=== PATIENT | male | born 1975 | race Caucasian/White ===

== ENCOUNTER 2021-04-07 12:50 | Emergency (ER) | payer OTHER, SELFPAY ==
[2021-04-07 13:07] VITALS: BP 140/84; PULSE 92; RESP 18; TEMP 36.9; O2SAT 97
--- NOTE | 2021-04-07 13:26 | CTR_ITS ---
PROCEDURE INFORMATION: Exam: CT Abdomen And Pelvis With Contrast Exam date and time: 04/07/2021 1:26 PM Age: 46 years old Clinical indication: Abdominal pain; Localized; Left lower quadrant (llq); Additional info: Llq pain TECHNIQUE: Imaging protocol: Computed tomography of the abdomen and pelvis with contrast. Radiation optimization: All CT scans at this facility use at least one of these dose optimization techniques: automated exposure control; mA and/or kV adjustment per patient size (includes targeted exams where dose is matched to clinical indication); or iterative reconstruction. Contrast material: OMNIPAQUE 300; Contrast volume: 95 ml; Contrast route: INTRAVENOUS (IV); COMPARISON: No relevant prior studies available. RADIATION DOSE METRICS: Total DLP (mGy-cm): 1251.95 FINDINGS: Liver: Normal. No mass. Gallbladder and bile ducts: Normal. No calcified stones. No ductal dilation. Pancreas: Normal. No ductal dilation. Spleen: Normal. No splenomegaly. Adrenal glands: Normal. No mass. Kidneys and ureters: There are bilateral renal cysts. No renal calcification or hydronephrosis. Stomach and bowel: There is wall thickening of the ascending, transverse and descending colon. There is also wall thickening of the the proximal left small bowel. No bowel obstruction. Appendix: The appendix is visualized and appears normal. Intraperitoneal space: Unremarkable. No free air. No significant fluid collection. Vasculature: Unremarkable. No abdominal aortic aneurysm. Lymph nodes: Unremarkable. No enlarged lymph nodes. Urinary bladder: Unremarkable as visualized. Reproductive: Unremarkable as visualized. Bones/joints: Unremarkable. No acute fracture. Soft tissues: Unremarkable. CT/CT abdomen pelvis w con* [id number] IMPRESSION: Findings are consistent with enterocolitis.Clinical correlation is advised. COMMENTS: Consistent with the [employer]'s Incidental Findings Committee white paper (J Am Zeus Radiol 2018): Any incidental renal lesion less than 1 cm or classified as too small to characterize, or any incidental cystic renal lesion characterized as simple-appearing, is likely benign. No follow-up imaging is recommended for these lesions per consensus recommendations based on imaging criteria. Radiation Dose CTDIVOL = (mGy): DLP = 1251.95 (mGy-cm)
--- NOTE | 2021-04-07 13:27 | W.ED.ABDPA2 ---
HPI - Abdominal Pain General: Chief Complaint: Abdominal Pain Stated Complaint: SEVERE IN LOWER ABD Time Seen by Provider: 04/07/21 13:02 History of Present Illness: HPI narrative: Patient presents with 2-week history of left sided abdominal pain. Patient felt a pull in his abdomen 2 weeks ago while he was working pulling a crowbar a missed for couple days went back to work worked again and then approximately week and half later this he was pulling on a wire and PVC tubing and he felt like he ate some a bearhug to him around his abdomen and then he was walking to the office and he just went down with severe left-sided pain. Was transferred by ambulance to [facility] x-ray chest and labs were negative was discharged and patient said he is continued to have pain in his left quadrant and just did not feel right. Has history of reflux. Also has a history of he says spicy foods greasy food just running right through him for the last 2 years. MD elicited complaint: abdominal pain Onset (ago): day(s) Pain Consistency: constant Location: LLQ Severity: moderate Quality: fullness and sharp Migration to: no migration Exacerbating factors: movement Associated Symptoms: Reports no associated symptoms; Denies chills, fever(s), nausea and vomiting Review of Systems Const: Denies: fever(s), chills or body aches Eyes: Denies: change in vision or blurry vision ENMT: Denies: throat pain or nasal congestion Card: Denies: chest pain or dyspnea on exertion Resp: Denies: dyspnea, productive cough or non-productive cough GI: Reports: abdominal pain; Denies: nausea or vomiting : Denies: difficulty urinating Musc: Denies: extremity pain Skin/Breast: Denies: rash Neuro: Denies: headache(s) Psych: Denies: anxiety or depression Kt/Lymph: Denies: easy bruising PFSH ED PFSH: Social History (Updated 02/16/20 @ 10:53 by Naima Sotomayor CMA) Smoking and tobacco status: current every day smoker cigarettes Packs smoked per day: 0.5 Alcohol intake: former Year of sobriety/quit date alcohol: 2018 Physical Exam Const: COMMON NORMALS: no acute distress, average body habitus and patient oriented x3 HENMT: COMMON NORMALS: normocephalic HEAD & SCALP: normal to inspection and normocephalic FACE & SINUS: normal facial exam Eye: COMMON NORMALS: conjunctivae normal GENERAL EYE: appearance normal, both eyes and all related structures CONJUNCTIVA: Yes conjunctivae normal Neck/C-Spine: COMMON NORMALS: no JVD Chest: COMMONS NORMALS: normal inspection of the chest Resp: COMMON NORMALS: normal respiratory effort and clear to auscultation bilaterally AUSCULTATION: clear to auscultation bilaterally Cardio: COMMON NORMALS: no JVD, regular rate and regular rhythm RATE: regular rate RHYTHM: regular rhythm GI: INSPECTION: Yes normal to inspection PALPATION: Yes Tenderness to palpation present (GI) Details: LLQ and LUQ Extremity: COMMON NORMALS: normal to inspection and full ROM Neuro: COMMON NORMALS: patient oriented x3 Course Vital Signs: Vital signs: Vital Signs Temperature 98.4 F 04/07/21 13:07 Pulse Rate 79 04/07/21 15:18 Respiratory Rate 16 04/07/21 15:18 Blood Pressure 117/96 04/07/21 15:18 Pulse Oximetry 100 04/07/21 15:18 MDM - Abdominal Pain MDM Narrative: Medical decision making narrative: Mild elevated white count. CT shows enterocolitis. Explained was going on patient placed on antibiotics and follow-up at the clinic to be reevaluated this coming week. Also recommend he see a GI specialist. Lab Data: Labs: Lab Results 04/07/21 04/07/21 04/07/21 Range/Units 13:40 13:40 14:27 WBC 11.2 H (4.0-10.0) 10^3/ uL RBC 5.48 H (4.1-5.3) 10^6/u L Hgb 16.7 H (11.7-16.6) g/dL Hct 49.7 (42.0-52.0) % MCV 90.7 (80-94) fl MCH 30.5 (28.0-34.0) pg MCHC 33.6 (30.0-36.0) g/dL RDW 13.0 (12.1-15.1) % Plt Count 210 (130-400) 10^3/c mm MPV 12.4 H (7.4-10.4) fL Neut % (Auto) 69.9 % Lymph % (Auto) 22.9 % [place] % (Auto) 5.5 % Eos % (Auto) 1.1 % Baso % (Auto) 0.3 % Neut # (Auto) 7.83 H (1.8-7.7) 10^3/u L Lymph # (Auto) 2.6 (0.8-4.8) 10^3/u L [place] # (Auto) 0.6 (0.2-0.9) 10^3/u L Eos # (Auto) 0.1 (0.0-0.8) 10^3/u L Baso # (Auto) 0.0 (0.0-0.1) 10^3/u L Nucleated RBC % (a uto) 0 % Nucleated RBCs # 0.0 /100WBC Sodium 141 (136-145) mmol/L Potassium 4.0 (3.5-5.1) mmol/L Chloride 106 (98-107) mmol/L Carbon Dioxide 24 (22-29) mmol/L Anion Gap 15.0 (5-19) BUN 7 (6-20) mg/dL Creatinine 0.7 (0.7-1.2) mg/dL GFR Calculation 122.0 (90-130) mL/min Glucose 78 (65-115) mg/dL Calculated Osmolal ity 289 (285-295) mOsm/k g Calcium 8.6 (8.5-10.5) mg/dL Total Bilirubin 0.5 (0.15-1.2) mg/dL AST 18 (0-40) U/L ALT 18 (0-41) U/L Alkaline Phosphata se 100 (40-130) IU/L Total Protein 6.8 (6.6-8.7) g/dL Albumin 4.1 (3.5-5.2) g/dL Globulin 2.7 (1.3-4.6) g/dL Lipase 20 (13-60) U/L Urine Color Yellow (Yellow) Urine Appearance Clear (CLEAR) Urine pH 6.5 (5-7) Ur Specific Gravit y 1.005 (1.005-1.030) Urine Protein Trace (Negative) Urine Glucose (UA) Norm (Normal) Urine Ketones Negative (Negative) Urine Blood Neg (Negative) Urine Nitrate Negative (Negative) Urine Bilirubin Neg (Negative) Urine Urobilinogen 1 H (Negative) mg/dL Ur Leukocyte Cheryl ase Negative (Negative) Urine RBC None (0-2) /hpf Urine WBC Rare (0-5) /hpf Ur Squamous Epith Cells None (0-5) /hpf Amorphous Sediment Not Reportable Urine Bacteria Trace (NONE) /hpf Discharge Plan Discharge Patient Disposition: Home Clinical Impression: Enterocolitis Condition: Stable Prescriptions: New Flagyl 500 mg tablet 500 mg PO BID 7 Days Qty: 14 RF: 0 Cipro 500 mg tablet 500 mg PO BID Qty: 14 RF: 0 No Action amoxicillin 500 mg tablet 1,000 mg PO BID 10 Days Qty: 40 RF: 0 clarithromycin 500 mg tablet 500 mg PO BID 10 Days Qty: 20 RF: 0 metronidazole 250 mg tablet 250 mg PO Q12H 10 Days Qty: 20 RF: 0 omeprazole 20 mg capsule,delayed release(DR/EC) 20 mg PO BID Qty: 40 RF: 0 Discharge Orders: Discharge ED (Routine); Ordered 04/07/21 Ordered By: Vladislav Hawley Referrals: Ac Fuchs MD [Primary Care Provider] - Discharge Diet: Advance as tolerated Discharge Activity: Increase activity as tolerated Activity Restrictions/Additional Instructions: Follow-up with medical provider as directed. Take medications as prescribed. Return to the ER or your medical provider if condition worsens. Please read and understand discharge instructions. If any questions ask please. Suggest follow-up with with a GI doctor. Also follow-up at [facility] in 1 week. Stand Alone Forms: Work/School Release Coding Level of Care Code ED Stay Cutter for Arnoldo Fwd Exam Comprehensive
[2021-04-07] MEDS: iohexol 300 mg/mL 100 mL Btl IV (13:44)
[2021-04-07 13:55] VITALS: BP 115/92; PULSE 75; RESP 16; O2SAT 96
[2021-04-07] MEDS: sodium chloride 0.9% 1,000 ML 999 ML IV (13:57)
[2021-04-07 14:00] VITALS: BP 114/86; PULSE 75; RESP 16; O2SAT 97
[2021-04-07 14:23] LABS: Basophils % 0.3 %; Eosinophils # 0.1 10^3/uL (0.0-0.8); Eosinophils % 1.1 %; Hematocrit 49.7 % (42.0-52.0); Hemoglobin 16.7 g/dL (11.7-16.6); Lymphocytes # 2.6 10^3/uL (0.8-4.8); Lymphocytes % 22.9 %; Mean Corpuscular HGB Conc 33.6 g/dL (30.0-36.0); Mean Corpuscular Hemoglobin 30.5 pg (28.0-34.0); Mean Corpuscular Volume 90.7 fl (80-94); Mean Platelet Volume 12.4 fL (7.4-10.4); Monocytes # 0.6 10^3/uL (0.2-0.9); Monocytes % 5.5 %; Neutrophils # 7.83 10^3/uL (1.8-7.7); Neutrophils % 69.9 %; Nucleated Red Blood Cells % 0 %; Platelet Count 210 10^3/cmm (130-400); Red Blood Count 5.48 10^6/uL (4.1-5.3); White Blood Count 11.2 10^3/uL (4.0-10.0)
[2021-04-07 14:53] LABS: Alanine Aminotransferase 18 U/L (0-41); Albumin Level 4.1 g/dL (3.5-5.2); Alkaline Phosphatase 100 IU/L (40-130); Aspartate Amino Transferase 18 U/L (0-40); Blood Urea Nitrogen 7 mg/dL (6-20); Calcium 8.6 mg/dL (8.5-10.5); Carbon Dioxide 24 mmol/L (22-29); Chloride 106 mmol/L (98-107); Globulin 2.7 g/dL (1.3-4.6); Glucose 78 mg/dL (65-115); Lipase 20 U/L (13-60); Osmolality Calculated 289 mOsm/kg (285-295); Sodium 141 mmol/L (136-145); Total Bilirubin 0.5 mg/dL (0.15-1.2); Total Protein 6.8 g/dL (6.6-8.7)
[2021-04-07] MEDS: ciprofloxacin 500 mg Tablet PO (14:53)
[2021-04-07] MEDS: metroNIDAZOLE 500 MG Tablet PO (14:53)
[2021-04-07 15:03] LABS: Add Urine Microscopic? YES; Bilirubin Urine Neg (Negative); Blood Urine Neg (Negative); Glucose Urine UA Norm (Normal); Ketones Urine Negative (Negative); Leukocyte Esterase Urine Negative (Negative); Nitrate Urine Negative (Negative); Protein Urine Trace (Negative); Specific Gravity, Urine 1.005 (1.005-1.030); Urine Appearance Clear (CLEAR); Urine Color Yellow (Yellow); Urobilinogen Urine 1 mg/dL (Negative); pH Urine 6.5 (5-7)
[2021-04-07 15:05] LABS: Add Urine Culture? No; Bacteria Urine TRACE /hpf; WBC Urine RARE /hpf (0-5)
[2021-04-07 15:18] VITALS: BP 117/96; PULSE 79; RESP 16; O2SAT 100
== END 2021-04-07 15:19 | disposition home or self-care (01) ==
PROVIDERS: Emergency Provider Nurse Practitioner Family; PCP Family Medicine
DX: K52.9 Noninfective gastroenteritis and colitis, unspecified (principal); F17.210 Nicotine dependence, cigarettes, uncomplicated
CPT/HCPCS: 74177; 80053; 81001; 83690; 85025; 96360; 99283; J7030; Q9967

== ENCOUNTER 2021-04-12 15:58 | Emergency (ER) | payer OTHER, SELFPAY ==
[2021-04-12 16:22] VITALS: BP 114/75; PULSE 96; RESP 20; TEMP 37.1; O2SAT 97
--- NOTE | 2021-04-12 17:03 | CTR_ITS ---
PROCEDURE INFORMATION: Exam: CT Abdomen And Pelvis With Contrast Exam date and time: 04/12/2021 5:03 PM Age: 46 years old Clinical indication: Abdominal pain; Localized; Left upper quadrant (luq) TECHNIQUE: Imaging protocol: Computed tomography of the abdomen and pelvis with contrast. Radiation optimization: All CT scans at this facility use at least one of these dose optimization techniques: automated exposure control; mA and/or kV adjustment per patient size (includes targeted exams where dose is matched to clinical indication); or iterative reconstruction. Contrast material: OMNI 350; Contrast volume: 95 ml; Contrast route: INTRAVENOUS (IV); COMPARISON: CT abdomen pelvis w con* [id number] 04/07/2021 1:39 PM RADIATION DOSE METRICS: Total DLP (mGy-cm): 1055.22 FINDINGS: Liver: Normal. No mass. Gallbladder and bile ducts: Normal. No calcified stones. No ductal dilation. Pancreas: Normal. No ductal dilation. Spleen: Normal. No splenomegaly. Adrenal glands: Normal. No mass. Kidneys and ureters: Scattered cysts throughout both kidneys measuring up to 1.3 cm in size in the upper pole the left kidney. Stomach and bowel: Unremarkable. No obstruction. No mucosal thickening. Appendix: No evidence of appendicitis. Intraperitoneal space: Unremarkable. No free air. No significant fluid collection. Vasculature: Unremarkable. No abdominal aortic aneurysm. Lymph nodes: Unremarkable. No enlarged lymph nodes. Urinary bladder: Unremarkable as visualized. Reproductive: Unremarkable as visualized. Bones/joints: No acute fracture. Soft tissues: Unremarkable. CT/CT abdomen pelvis w con* [id number] IMPRESSION: No acute abdominal/pelvic findings. COMMENTS: Consistent with the [employer]'s Incidental Findings Committee white paper (J Am Zeus Radiol 2018): Any incidental renal lesion less than 1 cm or classified as too small to characterize, or any incidental cystic renal lesion characterized as simple-appearing, is likely benign. No follow-up imaging is recommended for these lesions per consensus recommendations based on imaging criteria. Radiation Dose CTDIVOL = (mGy): DLP = 1055.22 (mGy-cm)
--- NOTE | 2021-04-12 17:07 | ED_ITS ---
HPI - Abdominal Pain General: Chief Complaint: Abdominal Pain Stated Complaint: UPPER ABD PAIN, WORSE SINCE FRIDAY Time Seen by Provider: 04/12/21 17:07 History of Present Illness: HPI narrative: 46-year-old male patient comes in today with abdominal pain. Patient states that he was here over the weekend and was diagnosed with colitis with recommendations for follow-up with primary care for further treatment. Patient was placed on Cipro and Flagyl for the care plan to treat colitis. Patient appears well. Patient appears in mild pain. Patient reports following up with his primary care and being set up for an appointment with a specialist for April 27. Patient does not feel that he can wait until the end of next month for colonoscopy. MD elicited complaint: abdominal pain Review of Systems General: Reports: 10 or more systems reviewed and unremarkable except in HPI and below GI: Reports: abdominal pain PFSH ED PFSH: Social History Smoking and tobacco status: current every day smoker cigarettes Packs smoked per day: 0.5 Alcohol intake: former Year of sobriety/quit date alcohol: 2018 Physical Exam Const: COMMON NORMALS: no acute distress and patient oriented x3 GENERAL APPEARANCE: cooperative HENMT: COMMON NORMALS: normocephalic and Normal external nose present HEAD & SCALP: normal to inspection and normocephalic NOSE: Normal external nose present MOUTH: Normal oral and palatal mucosa present THROAT: posterior oropharynx normal Eye: GENERAL EYE: appearance normal, both eyes and all related structures Neck/C-Spine: COMMON NORMALS: full ROM Lymph: LYMPHATIC: no lymphadenopathy noted Chest: COMMONS NORMALS: normal inspection of the chest Resp: COMMON NORMALS: normal respiratory effort EFFORT & INSPECTION: Yes able to speak in complete sentences Cardio: COMMON NORMALS: regular rate and regular rhythm RATE: regular rate RHYTHM: regular rhythm GI: COMMON NORMALS: Soft to palpation INSPECTION: Yes normal to inspection AUSCULTATION: Yes normoactive bowel sounds PALPATION: Yes Soft to palpation and Yes Tenderness to palpation present (GI) (generalized) : COMMON NORMALS: Yes no CVA tenderness BLADDER/KIDNEY EXAM: Yes no CVA tenderness Back/Pelvis: COMMON NORMALS: no CVA tenderness and thoracic and lumbar spine normal to inspection Extremity: COMMON NORMALS: normal to inspection Neuro: COMMON NORMALS: patient oriented x3 and moves all extremities Psych: COMMON NORMALS: mental status grossly normal and cooperative Skin: COMMON NORMALS: no rashes or lesions noted GENERAL SKIN EXAM: no rashes or lesions noted Course Vital Signs: Vital signs: Vital Signs Temperature 98.8 F 04/12/21 16:22 Pulse Rate 96 04/12/21 16:22 Respiratory Rate 20 H 04/12/21 16:22 Blood Pressure 114/75 04/12/21 16:22 Pulse Oximetry 97 04/12/21 16:22 MDM - Abdominal Pain MDM Narrative: Medical decision making narrative: 46-year-old male comes in today for complaints of abdominal discomfort. Patient appears well. Patient appears no acute distress. On exam abdomen soft with some mild tenderness throughout. Bowel sounds are normal. Vital signs are normal. Differential diagnosis includes but not limited to bowel obstruction, enterocolitis, GERD, cholecystitis. Laboratory values were unremarkable. CT scan showed resolution of colitis and no other new findings. Patient is concerned about the pain and about his colonoscopy. We will have case management see about getting patient set up for earlier colonoscopy. Encourage patient to drink plenty of fluids eat a healthy diet. Patient was written for some dicyclomine to see if that would assist with his abdominal cramping and pain. Patient was recommended to use MiraLAX for constipation. Lab Data: Labs: Lab Results 04/12/21 04/12/21 04/12/21 Range/Units 17:09 17:09 17:09 WBC 10.1 H (4.0-10.0) 10^3/ uL RBC 5.31 H (4.1-5.3) 10^6/u L Hgb 16.3 (11.7-16.6) g/dL Hct 48.4 (42.0-52.0) % MCV 91.1 (80-94) fl MCH 30.7 (28.0-34.0) pg MCHC 33.7 (30.0-36.0) g/dL RDW 13.1 (12.1-15.1) % Plt Count 217 (130-400) 10^3/c mm MPV 12.5 H (7.4-10.4) fL Neut % (Auto) 67.6 % Lymph % (Auto) 22.8 % [place] % (Auto) 7.0 % Eos % (Auto) 1.7 % Baso % (Auto) 0.6 % Neut # (Auto) 6.83 (1.8-7.7) 10^3/u L Lymph # (Auto) 2.3 (0.8-4.8) 10^3/u L [place] # (Auto) 0.7 (0.2-0.9) 10^3/u L Eos # (Auto) 0.2 (0.0-0.8) 10^3/u L Baso # (Auto) 0.1 (0.0-0.1) 10^3/u L Nucleated RBC % (a uto) 0 % Nucleated RBCs # 0.0 /100WBC Sodium 140 (136-145) mmol/L Potassium 3.8 (3.5-5.1) mmol/L Chloride 106 (98-107) mmol/L Carbon Dioxide 22 (22-29) mmol/L Anion Gap 15.8 (5-19) BUN 9 (6-20) mg/dL Creatinine 0.7 (0.7-1.2) mg/dL GFR Calculation 122.0 (90-130) mL/min Glucose 96 (65-115) mg/dL Calculated Osmolal ity 289 (285-295) mOsm/k g Calcium 9.0 (8.5-10.5) mg/dL Total Bilirubin 0.2 (0.15-1.2) mg/dL AST 16 (0-40) U/L ALT 16 (0-41) U/L Alkaline Phosphata se 83 (40-130) IU/L Total Protein 6.8 (6.6-8.7) g/dL Albumin 3.9 (3.5-5.2) g/dL Globulin 2.9 (1.3-4.6) g/dL Lipase 31 (13-60) U/L Urine Color Yellow (Yellow) Urine Appearance Clear (CLEAR) Urine pH 5 (5-7) Ur Specific Gravit y 1.020 (1.005-1.030) Urine Protein Neg (Negative) Urine Glucose (UA) Norm (Normal) Urine Ketones Negative (Negative) Urine Blood Neg (Negative) Urine Nitrate Negative (Negative) Urine Bilirubin Neg (Negative) Urine Urobilinogen Neg (Negative) mg/dL Ur Leukocyte Cheryl ase Negative (Negative) Discharge Plan Discharge Patient Disposition: Home Clinical Impression: Abdominal pain Qualifiers: Abdominal location: unspecified location Qualified Code(s): R10.9 - Unspecified abdominal pain Condition: Stable Prescriptions: New dicyclomine 20 mg tablet 20 mg PO QID PRN (Reason: abdominal pain) Qty: 20 RF: 0 Miralax 17 gram/dose powder 17 g PO BID PRN (Reason: constipation) Qty: 238 RF: 0 No Action Flagyl 500 mg tablet 500 mg PO BID 7 Days Qty: 14 RF: 0 Cipro 500 mg tablet 500 mg PO BID Qty: 14 RF: 0 Discharge Orders: Discharge ED (Routine); Ordered 04/12/21 Ordered By: Juan Hardy Referrals: Hannah Murillo MD [Primary Care Provider] - Discharge Diet: Usual diet Discharge Activity: Increase activity as tolerated Patient Instructions: Abdominal Pain (ED), Opioid Safety Activity Restrictions/Additional Instructions: Home and rest. Drink plenty of water. Avoid gas-forming foods. Use MiraLAX twice a day for constipation issues. Use dicyclomine 4 times a day as needed for abdominal discomfort. Follow-up with primary care. Case management will contact you regarding colonoscopy appointment. Return to the ER for high fever, blood in vomit or stool, or new concerns. Coding Level of Care Code ED Employee Communications Intern for Chg Fwd Exam Comprehensive
[2021-04-12 17:20] LABS: Add Urine Microscopic? NO; Charge for UA Resulting for Rev
[2021-04-12] MEDS: iohexol 300 mg/mL 100 mL Btl IV (17:22)
[2021-04-12 17:30] LABS: Basophils # 0.1 10^3/uL (0.0-0.1); Basophils % 0.6 %; Eosinophils # 0.2 10^3/uL (0.0-0.8); Eosinophils % 1.7 %; Hematocrit 48.4 % (42.0-52.0); Hemoglobin 16.3 g/dL (11.7-16.6); Lymphocytes # 2.3 10^3/uL (0.8-4.8); Lymphocytes % 22.8 %; Mean Corpuscular HGB Conc 33.7 g/dL (30.0-36.0); Mean Corpuscular Hemoglobin 30.7 pg (28.0-34.0); Mean Corpuscular Volume 91.1 fl (80-94); Mean Platelet Volume 12.5 fL (7.4-10.4); Monocytes # 0.7 10^3/uL (0.2-0.9); Neutrophils # 6.83 10^3/uL (1.8-7.7); Neutrophils % 67.6 %; Nucleated Red Blood Cells % 0 %; Platelet Count 217 10^3/cmm (130-400); Red Blood Count 5.31 10^6/uL (4.1-5.3); Red Cell Distribution Width 13.1 % (12.1-15.1); White Blood Count 10.1 10^3/uL (4.0-10.0)
[2021-04-12] MEDS: sodium chloride 0.9% 1,000 ML 999 ML IV (17:32)
[2021-04-12] MEDS: famotidine 20 mg/2 mL INJ 40 MG IVP (17:34)
[2021-04-12] MEDS: ondansetron 2 mg/ML SDV 2 mL 4 MG IVP (17:34)
[2021-04-12 17:41] LABS: Bilirubin Urine Neg (Negative); Blood Urine Neg (Negative); Glucose Urine UA Norm (Normal); Ketones Urine Negative (Negative); Leukocyte Esterase Urine Negative (Negative); Nitrate Urine Negative (Negative); Protein Urine Neg (Negative); Urine Appearance Clear (CLEAR); Urine Color Yellow (Yellow); Urobilinogen Urine Neg (Negative); pH Urine 5 (5-7)
[2021-04-12 17:49] LABS: Alanine Aminotransferase 16 U/L (0-41); Albumin Level 3.9 g/dL (3.5-5.2); Alkaline Phosphatase 83 IU/L (40-130); Anion Gap 15.8 (5-19); Aspartate Amino Transferase 16 U/L (0-40); Blood Urea Nitrogen 9 mg/dL (6-20); Carbon Dioxide 22 mmol/L (22-29); Chloride 106 mmol/L (98-107); Globulin 2.9 g/dL (1.3-4.6); Glucose 96 mg/dL (65-115); Lipase 31 U/L (13-60); Osmolality Calculated 289 mOsm/kg (285-295); Potassium 3.8 mmol/L (3.5-5.1); Sodium 140 mmol/L (136-145); Total Bilirubin 0.2 mg/dL (0.15-1.2); Total Protein 6.8 g/dL (6.6-8.7)
[2021-04-12 18:32] VITALS: BP 107/79; PULSE 83; O2SAT 96
[2021-04-12 19:15] VITALS: BP 123/83; PULSE 75; RESP 16; O2SAT 97
--- NOTE | 2021-04-13 10:46 | DCPLANNER ---
lead case manager had message to schedule a follow up appointment for patient with [facility] General Surgery. lead case manager emailed patients information to both Karolina and Mary Ellen at [facility] General Surgery. Patients information will be printed and reviewed. Clinic will call patient with appointment information.
--- NOTE | 2021-04-16 14:25 | DCPLANNER ---
Patient has a follow up appointment scheduled for Tuesday, April 27, 2021 at 9:[address] aLngley at [facility] General Surgery. Clinic will call patient with appointment information.
--- NOTE | 2021-05-09 14:38 | DCPLANNER ---
Patient had a follow up appointment scheduled for 04.27.21 with general surgery - patient did attend appointment.
== END 2021-04-12 19:15 | disposition home or self-care (01) ==
PROVIDERS: Physician Assistant; Emergency Provider Nurse Practitioner Family; PCP Family Medicine
DX: R10.9 Unspecified abdominal pain (principal); F17.210 Nicotine dependence, cigarettes, uncomplicated
CPT/HCPCS: 74177; 80053; 81003; 83690; 85025; 96361; 96374; 96375; 99283; J2405; J3490; J7030; Q9967

== ENCOUNTER → 2021-05-21 09:38 | Outpatient (BNVA) | payer OTHER, SELFPAY | PROVIDERS: PCP Family Medicine; Visit Provider Surgery | DX: Z20.822 Contact with and (suspected) exposure to COVID-19 (principal) | CPT/HCPCS: 87635 ==

== ENCOUNTER 2021-05-25 06:04 | Day surgery (SDC) | payer OTHER, SELFPAY ==
[2021-05-21 11:07] VITALS: BMI 23.8
[2021-05-25 06:17] VITALS: BP 111/76; PULSE 68; RESP 18; TEMP 36.6; O2SAT 98
[2021-05-25] MEDS: sodium chloride 0.9% 1,000 ML 30 ML IV (06:23)
--- NOTE | 2021-05-25 06:51 | W.PM.OPSUD ---
Surgery/Procedure H&P Update DATE OF PROCEDURE: May 25, 2021 DATE H&P PERFORMED: 04/27/21 H&P UPDATE INFORMATION: I have reviewed H&P completed within last 30 days, I have examined patient prior to procedure and No changes to prior documentation PREOP DIAGNOSIS: panendoscopy PLANNED PROCEDURE: Operation Date: 05/25/21 07:00 Proposed Procedures p EGD/colon 39033 [id number] R52.9 R10.9(Not Applicable) - Vince Langley MD s Colonoscopy(Not Applicable) - Vince Langley MD
--- NOTE | 2021-05-25 06:58 | ANES.PREANE2 ---
Pre-Anesthetic Assessment Pre-Anesthetic Assessment: Height/Weight: Height 1.7 m Weight 68.946 kg Temp Pulse Resp BP Pulse Ox 97.9 F 68 18 111/76 98 05/25/21 06:17 05/25/21 06:17 05/25/21 06:17 05/25/21 06:17 05/25/21 06:17 Preop Diagnosis: panendoscopy Proposed Procedure: Operation Date: 05/25/21 07:00 Proposed Procedures p EGD/colon [id number] 34077 R52.9 R10.9(Not Applicable) - Vince Langley MD s Colonoscopy(Not Applicable) - Vince Langley MD Was Beta Sahra taken within 24 hours: N/A Was Clonidine taken within 24 hours: N/A Last intake: Intake Last Liquid Date 05/24/21 Last Liquid Time 23:00 Last Solid Date 05/23/21 Last Solid Time 19:00 Social: Social History: Tobacco Packs per day: 1 pack per day Pack years: 30+ Exam: Pre-Anes Outpt Exam: alert, oriented x 3 and regular rate & rhythm Airway: Submandibular: WNL Cervical ROM: WNL MP: 2 Dentition: Loose (bottom front VERY loose) Additional comments: very poor dentition History/ROS: No significant history except as noted and No significant complaints Pulmonary: Pulmonary: None reported CV/HEM: CV/HEM: None reported : : None reported Hepatic: Hepatic: None reported GI: GI: None reported Metabolic: Metabolic: None reported Musc/skel: Musc/skel: None reported Neuropsych: Neuropsych: None reported Anesthetic Plan: ASA status: 2 Anesthesia: Anesthesia Evaluation and MAC Risk of > 500 ml blood loss (7ml/kg in children): No Meds/Allergies Current Medications: Current Medications Generic Name Dose Route Start Last Admin Trade Name Freq PRN Reason Stop Dose Admin Sodium Chloride 1,000 mls @ 30 ml s/hr 05/25/21 06:15 05/25/21 06:23 Sodium Chloride 0.9% IV 30 mls/hr .Q24H LIO Administration PFSH Anesthesia PFSH: Surgical History (Updated 04/27/21 @ 09:12 by Vince Langley MD) H/O hemorrhoidectomy History of dental surgery History of hernia surgery History of placement of ear tubes History of surgery on arm rt Social History Alcohol intake: former Year of sobriety/quit date alcohol: 2018 Data Anesthesia Cardiac Studies: No Data to Display
[2021-05-25 07:32] VITALS: BP 104/74; PULSE 81; RESP 20; TEMP 36.1; O2SAT 91
[2021-05-25 07:41] VITALS: BP 121/84; PULSE 76; RESP 18; O2SAT 95
--- NOTE | 2021-05-25 12:22 | ANE.PACU2 ---
Inpatient post-anesthesia follow up: Airway intact: Yes Vital signs: Temperature 97 F Pulse Rate 76 Respiratory Rate 18 Blood Pressure 121/84 Pulse Oximetry 95 Oxygen Delivery Me thod Room Air Oxygen Flow Rate 2 Fraction of Inspir ed Oxygen Hydration adequate: Yes Nausea and vomiting: No Pain level: 1 Mental status: Baseline
== END 2021-05-25 08:02 | disposition home or self-care (01) ==
PROVIDERS: PCP Family Medicine; Visit Provider Surgery
PROC: 0DJ08ZZ Inspection of Upper Intestinal Tract, Via Natural or Artificial Opening Endoscopic (ICD-10-PCS; CPT 43235; principal; 2021-05-25 07:00)
PROC: 0DJD8ZZ Inspection of Lower Intestinal Tract, Via Natural or Artificial Opening Endoscopic (ICD-10-PCS; CPT 45378; 2021-05-25 07:00)
DX: R19.7 Diarrhea, unspecified (principal); D12.5 Benign neoplasm of sigmoid colon; K64.8 Other hemorrhoids; K29.80 Duodenitis without bleeding; K25.9 Gastric ulcer, unspecified as acute or chronic, without hemorrhage or perforation; K20.90 Esophagitis, unspecified without bleeding; F17.210 Nicotine dependence, cigarettes, uncomplicated
CPT/HCPCS: 43239; 45380; 82274; 83630; 87493; 87506; 88305; 96360; J2704; J7030

== ENCOUNTER 2021-07-04 09:30 | Outpatient (CLI) | payer OTHER, SELFPAY ==
--- NOTE | 2021-07-04 10:00 | NM_ITS ---
WS: [id number] NUCLEAR MEDICINE HIDA SCAN WITH GALLBLADDER EJECTION FRACTION HISTORY: R10.9 - Unspecified abdominal pain COMPARISON: 04/12/2021 TECHNIQUE: The patient was intravenously injected with 5.2 mCi of TC99m Mebrofenin. Immediate imaging over the right upper quadrant was followed by 5 minute image and additional images for a total of 60 minutes. Normal uptake of radiotracer throughout the liver. Activity identified in the gallbladder at 15 minutes and well distended by 60 minutes. Activity in the proximal small bowel was seen by 40 minutes. Good washout of the radiotracer from the liver by 60 minutes. The patient then drank 8 ounces of Ensure Plus. Ejection fraction at 60 minutes was 49%. Normal GB ej ection fraction is 35-75%. Post fatty meal symptoms: None. NM/NM hepatobiliary w phar* [id number] IMPRESSION: 1. Normal HIDA scan. 2. Normal gallbladder ejection fraction.
== END 2021-07-04 09:31 | disposition home or self-care (01) ==
LOC: NM 09:31
PROVIDERS: PCP Family Medicine; Visit Provider Surgery
DX: K52.9 Noninfective gastroenteritis and colitis, unspecified (principal); R10.9 Unspecified abdominal pain
CPT/HCPCS: 78227; A9537